=== PATIENT | female | born 1985 | race Two or more races ===

== ENCOUNTER 2025-02-17 01:03 | Emergency (ER) | payer MEDICAID, SELFPAY ==
[2025-02-17] VITALS (9 sets, daily range): BP systolic 118–132; BP diastolic 59–82; PULSE 70–92; RESP 15–20; TEMP 36.4–37; O2SAT 94–100; BMI 37.1; BMI 34.7
--- NOTE | 2025-02-17 04:26 | XR_ITS ---
Examination: PA chest single view TECHNIQUE: Upright PA chest single view Examination type: February 17, 2025 0431 hours INDICATIONS: Coughing and shortness of breath beginning 4 days ago. FINDINGS: Normal heart size Lobar pneumonia The osseous structures are intact IMPRESSION: No lobar pneumonia identified
--- NOTE | 2025-02-17 04:26 | PD.EDRME ---
Rapid Medical Screening Exam [facility] Arrival date/time: 02/17/25 01:03 39F with no significant PMH presents to ED with 4 days of SOB and wheezing. Patient denies history of asthma and denies wet cough and fevers/chills. Chief Complaint: Allergic Reaction Vital signs: Vital Signs Temperature 98.2 F 02/17/25 02:01 Pulse Rate 82 02/17/25 02:01 Respiratory Rate 18 02/17/25 02:01 Blood Pressure 122/82 02/17/25 02:01 Pulse Oximetry (%) 98 02/17/25 02:01 Oxygen Delivery Method Room Air 02/17/25 02:01
[2025-02-17] MEDS: DEXAMETHASONE SOD PHOS INJ 10 MG/ML VIAL PO (04:51)
[2025-02-17] MEDS: LEVALBUTEROL RT 1.25 MG/0.5 ML NEBU 5 MG INH (04:53)
[2025-02-17] MEDS: IPRATROPIUM RT 0.5 MG/ 2.5 ML NEBU 1 MG INH (04:54)
[2025-02-17] MEDS: SODIUM CHLORIDE RT SOL 0.9% 3 ML NEBU INH ×2 (04:54→08:08)
[2025-02-17] MEDS: ALBUTEROL/IPRATROPIUM (Duoneb) RT SOL 3 ML NEBU 10 ML INH (08:08)
--- NOTE | 2025-02-17 12:59 | EDNOTE_ITS ---
ED SOB =RME/HPI General Chief Complaint: Allergic Reaction Stated Complaint: I THINK I'M HAVING AN ALLERGIC REACTION Time Seen by Provider: 02/17/25 06:46 Arrival date/time: 02/17/25 01:03 Limitations: no limitations RME / HPI RME / HPI Narrative: 02/17/25 01:03 39F with no significant PMH presents to ED with 4 days of SOB and wheezing. Patient denies history of asthma and denies wet cough and fevers/chills. DR. LOVE MAIN ED EVALUATION: 39 year old female with a history of pollen allergies and no other chronic medical conditions presents to the ED for evaluation of shortness of breath and cough that began three days ago and worsened yesterday. She describes a sensation of not getting enough air, accompanied by wheezing. She reports [place] and believes this environmental exposure may be contributing to and exacerbating her symptoms. She also notes increased stress over the past day, which she feels may be playing a role. She denies fever, chills, chest pain, abdominal pain, nausea, vomiting, urinary symptoms, or other associated complaints. Related Data Previous Rx's ?Medication ?Instructions ?Recorded Phenazopyridine * (PYRIDIUM *) 100 mg PO BID Infection #10 tabs 09/26/14 ondansetron 4 mg disintegrating 4 mg PO Q8H PRN nausea and 07/06/24 tablet vomiting #10 tabs albuterol sulfate 90 mcg/actuation 2 puff inhalation Q 6H PRN 02/17/25 aerosol inhaler shortness of breath or wheez ing #8.5 grams prednisone 20 mg tablet See Taper PO BID asthma #14 tabs 02/17/25 Allergies Allergy/AdvReac Type Severity Reaction Status Date / Time No Known Allergies Allergy Verified 02/17/25 01:04 Review of Systems Review of Systems Narrative Review of Systems: GEN: No fever, no chills, no weight loss EYES: No discharge, no visual changes, no pain HEENT: No ear pain, no congestion, no sore throat PULM: + shortness of breath, + cough, no congestion CV: No chest pain, no palpitations GI: No nausea, no vomiting, no diarrhea, no pain, no constipation : No frequency, no urgency and no dysuria MUSC/SKEL No joint pain, no back pain SKIN: No rash PSYCH: No hallucinations, no depression HEME/LYMPH: No easy bleeding or bruising tendencies NEURO: No weakness, no headache Past Medical History Past Medical History NEUROLOGIC: Negative Neurological Disorders CARDIAC: Negative Cardiac Disorders or Congestive Heart Failure RESPIRATORY: Negative Chronic Obstructive Pulmonary Disease (COPD) GASTROINTESTINAL: Negative Gastrointestinal Disorders GENITOURINARY: Negative Genitourinary Disorders or Renal Disease ENDOCRINE: Negative Diabetes Mellitus Type 1 or Diabetes Mellitus Type 2 Family History FAMILY HISTORY: Negative Family Cancer Surgical History SURGICAL: Positive Section Social History SMOKING STATUS: Current every day smoker ED Exam General Limitations: Present no limitations General appearance: Present alert and in no apparent distress Head Head exam: Present atraumatic, normocephalic and normal inspection Eye Eye exam: Present normal appearance, PERRL and EOMI ENT ENT exam: Present normal exam, normal oropharynx and mucous membranes moist Neck Neck exam: Present normal inspection, full ROM and trachea midline Chest Chest inspection: Present normal inspection and symmetric chest wall rise Respiratory Respiratory exam: Present other (Mild expiratory wheezing from the mid lung to bases bilaterally ) Cardiovascular Cardiovascular exam: Present regular rate, normal rhythm and normal heart sounds Abdominal Exam Abdominal exam: Present soft and normal bowel sounds Extremities Exam Extremities exam: Present normal inspection and full ROM Back Exam Back exam: Present normal inspection and full ROM Neurological Exam Neurological exam: Present alert, oriented X3 and CN II-XII intact Psychiatric Psychiatric exam: Present normal affect and normal mood Skin Skin exam: Present warm, dry, intact and normal color Course Course Course Narrative: chest xray ordered to help determine etiology of shortness of breath. Quality Measures none Orders Category Date Time Status XR chest 1V portable Stat Exams 02/17/25 04:26 Completed Albuterol/Ipratr Rt Aggie [Duoneb Rt Aggie] Med 02/17/25 07:34 Discontinued 10 ml INH X1 ONE Albuterol/Ipratr Rt Aggie [Duoneb Rt Aggie] Med 02/17/25 07:34 Discontinued 3 ml INH X1 ONE Dexamethasone Inj [Decadron Inj] Med 02/17/25 04:26 Discontinued 10 mg PO X1 ONE Ipratropium [place] Rt Aggie [Atrovent Rt Aggie] Med 02/17/25 04:26 Discontinued 1 mg INH X1 ONE Levalbuterol Rt [Xopenex Rt Aggie] Med 02/17/25 04:26 Discontinued 5 mg INH X1 ONE Sodium Chloride Rt Aggie 0.9% [NS Rt Aggie 0.9%] Med 02/17/25 04:26 Active 3 ml INH PRN PRN Vital Signs Vital signs: Vital Signs Temperature 98.2 F 02/17/25 02:01 Pulse Rate 82 02/17/25 02:01 Respiratory Rate 18 02/17/25 02:01 Blood Pressure 122/82 02/17/25 02:01 Pulse Oximetry (%) 98 02/17/25 02:01 Oxygen Delivery Method Room Air 02/17/25 02:01 Pulse ox is 98% on room air which is adequate. Shortness of Breath / Dyspnea MDM Narrative MDM Narrative:: Josie Eric am scribing for and in the presence of Dr. Love. On reassessment, patients wheezing has improved.We reviewed all the results, analysis, and treatment plans. Patient is amenable to discharge. Strict return precautions were outlined. Patient was discharged in stable condition. Patient data External records reviewed:: [facility] previous records (I reviewed ED visit on 07/06/2024 ) Clinical information provided by:: patient Social determinants that could affect healthcare access:: none Patient has the following chronic illnesses:: Known pollen allergy How is presenting disease/condition affected by chronic disease/condition?: exacerbated by Evaluation data The following diagnostics were reviewed and interpreted by me:: radiology exam(s) Lab and/or radiology exams considered but not ordered:: None Interpretation Summary: Ordering Physician: Jase Baum PA-C Date of Service: 02/17/25 Procedure(s): XR chest 1V portable Accession Number(s): [id number] cc: Cristo Vides MD; Jase Baum PA-C~ Examination: PA chest single view TECHNIQUE: Upright PA chest single view Examination type: February 17, 2025 0431 hours INDICATIONS: Coughing and shortness of breath beginning 4 days ago. FINDINGS: Normal heart size Lobar pneumonia The osseous structures are intact IMPRESSION: No lobar pneumonia identified Dictated By: Cristo Vides MD Signed By: <Electronically signed by Cristo Vides MD in OV> 02/17/25 0716 Medications / Prescriptions Medications or Prescriptions considered but not ordered:: None Medication administrations:: Medication Administration History Sodium Chloride (Sodium Chloride Rt Aggie 0.9% 3 Ml Nebu) 3 ml INH PRN PRN PRN Reason: SOLN Stop: 03/19/25 04:25 Last Admin: 02/17/25 08:08 Dose: 3 ml Documented By: Admin: 02/17/25 04:54 Dose: 3 ml Documented By: OLIVER Discontinued Medications Albuterol/Ipratropium (Albuterol/Ipratropium (Duoneb) Rt Aggie 3 Ml Nebu) 3 ml INH X1 ONE Stop: 02/17/25 07:35 Last Admin: 02/17/25 07:57 Dose: Not Given Documented By: PATY Non-Admin Reason: Discontinued Albuterol/Ipratropium (Albuterol/Ipratropium (Duoneb) Rt Aggie 3 Ml Nebu) 10 ml INH X1 ONE Stop: 02/17/25 07:35 Last Admin: 02/17/25 08:08 Dose: 10 ml Documented By: CRISTIANE Dexamethasone Sodium Phosphate (Dexamethasone Sod Phos Inj 10 Mg/Ml Vial) 10 mg PO X1 ONE Stop: 02/17/25 04:27 Last Admin: 02/17/25 04:51 Dose: 10 mg Documented By: JIMMY Comments: MEDICATION GIVEN PO Ipratropium [place] (Ipratropium Rt 0.5 Mg/ 2.5 Ml Nebu) 1 mg INH X1 ONE Stop: 02/17/25 04:27 Last Admin: 02/17/25 04:54 Dose: 1 mg Documented By: OLIVER Levalbuterol HCl (Levalbuterol Rt 1.25 Mg/0.5 Ml Nebu) 5 mg INH X1 ONE Stop: 02/17/25 04:27 Last Admin: 02/17/25 04:53 Dose: 5 mg Documented By: OLIVER See above Consultations Consultation(s) initiated? (list below): No Diagnosis Shortness of Breath Differential Diagnosis: acute exacerbation of chronic obstructive airways disease, community acquired pneumonia, asthma with exacerbation and other (Pollen allergy ) Most likely diagnosis given after review of the tests above:: Shortness of breath Acute reactive airway disease Pollen allergy Admission Indicated Admission indicated?: not indicated Admission Request Was there a request for admission?: No Disposition Plan Disposition Plan: Discharge Discharge Attestation Discharge Attestation: The patient and all family members were given an opportunity to ask questions and understood the discharge instructions. Discharge instructions specifically effects, indications for sooner follow up or return to the emergency department, and the expected course of current diagnosis. Patient condition: Stable Discharge Plan Plan Patient Disposition: HOME (Self Care) Prescriptions/Referrals Prescriptions/Med Rec: New prednisone 20 mg tablet See Taper PO BID MDD 2 Qty: 14 0RF Taper: Prednisone Taper 20 mg TWICE A DAY for 7 Days and 0 Hour albuterol sulfate 90 mcg/actuation HFA aerosol inhaler 2 puff inhalation Q6H MDD 8 puffs PRN (Reason: shortness of breath or wheezing) Qty: 8.5 2RF No Action Phenazopyridine * (PYRIDIUM *) 100 MG tablet 100 mg PO BID Qty: 10 0RF ondansetron 4 mg tablet,disintegrating 4 mg PO Q8H PRN (Reason: nausea and vomiting) Qty: 10 0RF Referrals: No Primary/Family,Physician [Primary Care Provider] - In 1 week Problem List Clinical Impression: Shortness of breath, Reactive airway disease with acute exacerbation, Pollen allergies Patient/Caregiver Discharge Instructions Education Materials: ED Asthma, Acute (Adult) Additional Instructions: Follow-up with your primary care doctor in 1 day for recheck. You can return to the emergency department sooner if symptoms worsen or if you notice any new, concerning issues. Print Language: Polish Stand Alone Forms: Ana Award Info., Patient Portal Info Letter
== END 2025-02-17 13:31 | disposition home or self-care (01) ==
PROVIDERS: Emergency Provider Family Medicine
DX: J45.901 Unspecified asthma with (acute) exacerbation (principal); F17.210 Nicotine dependence, cigarettes, uncomplicated
CPT/HCPCS: 71045; 94640; 94644; 99284; A9270; J1100